=== PATIENT | female | born 1980 | race Native Hawaiian/Other Pacific Islander ===

== ENCOUNTER 2017-09-09 10:57 | Day surgery (SDC) | payer OTHER ==
[2017-09-09 11:24] VITALS: BMI 28.1
[2017-09-09] MEDS ORDERED: Lactated Ringer's 1,000 ML IV ONE (12:15)
[2017-09-09 12:36] LABS: BASO % 0.5 % (0.0-2.0); EOS # 0.1 K/uL (0.0-0.7); EOS % 1.8 % (0.0-4.0); HEMOGLOBIN 14.5 g/dL (12.0-16.0); LYMPH # 2.2 K/uL (1.0-4.3); LYMPH % 38.1 % (20.0-40.0); MEAN CELL VOLUME 83.4 fl (81.0-99.0); MEAN CORPUSCULAR HEMOGLOBIN 27.9 pg (27.0-31.0); MEAN CORPUSCULAR HGB CONC 33.5 g/dL (33.0-37.0); MEAN PLATELET VOLUME 8.2 fl (7.2-11.7); MONO # 0.3 K/uL (0.0-0.8); MONO % 5.6 % (0.0-10.0); NEUT # 3.1 K/uL (1.8-7.0); RBC 5.21 Mil/uL (3.80-5.20); RED CELL DISTRIBUTION WIDTH 14.6 % (11.5-14.5); WHITE BLOOD COUNT 5.8 K/uL (4.8-10.8)
[2017-09-09] MEDS ORDERED: Bupivacaine 0.5% Inj(30mL) ONE (12:59)
[2017-09-09] MEDS ORDERED: Vasopressin 20 Units/ml Inj ONE (12:59)
[2017-09-09] MEDS ORDERED: Lidocaine 2% MPF (5 ml) Inj ONE (13:43)
[2017-09-09] MEDS ORDERED: Propofol 10 mg/ml Inj (20 ML) ONE (13:43)
[2017-09-09] MEDS ORDERED: Midazolam 2 MG/2 ML VIAL ONE (13:43)
[2017-09-09] MEDS ORDERED: Morphine 5 MG/ML SYRINGE IVP PRN (14:59)
--- NOTE | 2017-09-09 15:39 | CP.SDSHP ---
Same Day Surgery H & P - History Proposed Procedure: Hysteroscopic polypectomy - Previous Medical/Surgical History Pain: 0. No Pain - Allergies Allergies: Allergies No Known Allergies Allergy (Verified 02/14/14 01:30) - Physical Exam General Appearance: No apparent distress Vital Signs: Vital Signs 09/09/17 09/09/17 09/09/17 11:53 14:40 14:55 Temperature 98 F 97.0 F L 97.3 F L Pulse Rate 78 99 H 89 Respiratory 18 17 18 Rate Blood Pressure 158/90 H 153/88 H 157/73 H O2 Sat by Pulse 100 100 100 Oximetry 09/09/17 09/09/17 15:10 15:25 Temperature 97.7 F 97.8 F Pulse Rate 79 82 Respiratory 18 18 Rate Blood Pressure 156/97 H 136/73 O2 Sat by Pulse 100 98 Oximetry Short Stay Discharge - Short Stay Discharge Admitting Diagnosis/Reason for Visit: N84.0 Referrals: Danis Arnett, [place] [Primary Care Provider] - Follow-up: Follow-up as scheduled with Dr. Alva Additional Instructions (Diet, Activity): Regular diet, nothing per vagina x 2 weeks. Progress Note/Discharge Note with Instructions: Discharge home when meets day surgery criteria.
[2017-09-09 16:32] VITALS: RESP 18
[2017-09-09 16:59] VITALS: BP 138/92; PULSE 78; TEMP 97.7; O2SAT 100
--- NOTE | 2017-09-10 06:52 | OP ---
PROCEDURE DATE: 09/09/2017 PREOPERATIVE DIAGNOSIS: The patient is a 36-year-old female with endometrial polyps. POSTOPERATIVE DIAGNOSIS: The patient is a 36-year-old female with endometrial polyps. SURGEON: Marisel Alva MD ANESTHESIA: Dr. Villasenor. TYPE OF ANESTHESIA: General anesthesia with laryngeal mask airway. LAND ECONOMIST: None. TYPE OF PROCEDURE: Hysteroscopy with multiple polypectomy using the MyoSure LITE. FINDINGS: 1. Uterine sounded to 3-1/4 inches. 2. Normal tubal ostia bilaterally. 3. 1 cm left posterior wall pedunculated polyp. 4. Multiple subcentimeter polyps at the uterine cavity. 5. Hemostasis. 6. Hysteroscopic fluid at normal saline. 7. Hysteroscopic fluid after 555 mL. COMPLICATIONS: None. IV FLUIDS: 500 mL. BLOOD LOSS: Less than 10 mL. DRAINS: None. SPECIMENS: Endometrial polyps to pathology. DESCRIPTION OF PROCEDURE: After proper consent was obtained and all questions were answered, the patient was transferred to the operating room #2, at [facility]. She was placed in the supine position. Adequate general anesthesia with LMA was administered by Dr. Villasenor. The patient was placed in the modified dorsal lithotomy position using the Markus stirrups to correct position to prevent nerve injury. Exam under anesthesia revealed an anterior mobile 6-week sized uterus. General prep was performed with Betadine. Sterile drape was performed in usual fashion. Attention was directed to the perinea. The weighted speculum was placed in the posterior Fornix of the vagina and the right angle retracted into the anterior Fornix of the vagina and the cervix was visualized. The anterior lip of the cervix was grasped with a single-tooth tenaculum and the cervix was sterilely dilated using the Yadiel dilator to accommodate the MyoSure hysteroscope. The hysteroscope was prepped with normal saline and advanced directly into the uterine cavity under direct visualization. This uterus was surveyed with findings as noted above, more significantly, a 1 cm pedunculated endometrial polyp in the posterior wall on the left side. The MyoSure LITE device was repaired and placed through the hysteroscope under direct visualization. The endometrial polyps were resected sequentially using the MyoSure LITE device. Uterus is surveyed and hemostasis is noted. All instruments were removed from the uterine cavity. The tenaculum was removed from the anterior lip of the cervix. Hemostasis was applied using sponge sticks. Hemostasis was achieved. All instruments were removed from the uterine cavity, and the patient was transferred to the recovery room in good condition. Please note that the uterine sounds performed prior to removal of bowel instruments and the uterus was noted to be . Marisel Alva MD
== END 2017-09-09 18:15 | disposition home or self-care (01) ==
LOC: H.OPSURG 10:57
PROVIDERS: ATTEND Obstetrics & Gynecology Reproductive Endocrinology
DX: N84.0 Polyp of corpus uteri (principal)
CPT/HCPCS: 36415; 58558; 85025; 88305; J2250; J2704; J3010; J7030; J7120